=== PATIENT | male | born 1980 | race Caucasian/White ===

== ENCOUNTER 2021-10-30 11:02 | Emergency (ER) | payer OTHER, SELFPAY ==
[2021-10-30 13:05] VITALS: BP 135/92; PULSE 80; RESP 16; TEMP 36.6; O2SAT 99
--- NOTE | 2021-10-30 14:01 | ED.URI ---
HPI - URI/Sore Throat General Chief Complaint: Upper Respiratory Infection Stated Complaint: Bilateral Ear Pain,Cough Time Seen by Provider: 10/30/21 13:52 Source: patient and RN notes reviewed Mode of arrival: ambulatory Limitations: no limitations History of Present Illness HPI Narrative: Patient presents today complaining of 3-day history of congestion, body aches, sore throat, cough, bilateral ear pressure. Denies fever or shortness of breath. He has been taking Mucinex and NyQuil with mild relief. Reports and daughter are sick with similar and daughter was diagnosed with a sinus infection at her doctor's office. MD elicited complaint: cough and nasal congestion Related Data Home Medications Medication Instructions Recorded Confirmed No Home Medications 10/30/21 10/30/21 Allergies Allergy/AdvReac Type Severity Reaction Status Date / Time No Known Allergies Allergy Verified 10/30/21 13:34 Review of Systems Review of Systems: CONSTITUTIONAL: Denies fever, chills, or sweats.+ Body aches EYES: Denies visual changes, redness, or discharge. ENT: Denies rhinorrhea.+ Sore throat, congestion, bilateral ear pressure CARDIOVASCULAR: Denies chest pain, palpitations, or edema. RESPIRATORY: Denies dyspnea.+ Cough GASTROINTESTINAL: Denies abdominal pain, nausea, vomiting, or diarrhea. GENITOURINARY: Denies dysuria or hematuria. SKIN: Denies rash, itching, or wounds. MUSCULOSKELETAL: Denies back pain, joint pain, or myalgia. NEUROLOGIC: Denies headache, numbness, tingling, or weakness. PSYCH: Denies depression or anxiety. PMFSH Comments At time of signature, I have reviewed and agree with nursing past medical, surgical, social and family history unless otherwise noted. Please see nursing chart for further information. There is no relevant family history pertinent to the presenting complaint Exam Narrative: GENERAL: Ill-appearing, well-nourished, and in no acute distress. HEAD: Normocephalic, atraumatic. EYES: EOMI. No redness or drainage. Conjunctivae normal. ENT: Mucous membranes pink and moist. Nares congested. Bilateral nasal turbinates are erythematous and edematous with rhinorrhea. TMs normal bilaterally. Throat normal. Uvula midline. NECK: Normal AROM. Supple. No lymphadenopathy. CHEST: No respiratory distress. Clear to auscultation. HEART: Regular rate and rhythm. No murmur appreciated. Normal peripheral pulses. ABDOMEN: Soft, nontender, nondistended, normal active bowel sounds. MUSCULOSKELETAL: No bony tenderness. EXTREMITIES: Normal range of motion. No edema. SKIN: Warm, dry, no rash. Capillary refill normal. Normal skin turgor. NEURO: No focal deficits. Alert and oriented x3. Gait steady. PSYCH: Normal affect. No signs of depression or anxiety. Course Course Level of Care: Express Care Visit Vital Signs Vital signs: Vital Signs Temperature 97.9 F 10/30/21 13:05 Pulse Rate 80 10/30/21 13:05 Respiratory Rate 16 10/30/21 13:05 Blood Pressure 135/92 H 10/30/21 13:05 Pulse Oximetry 99 10/30/21 13:05 Temperature 97.9 F 10/30/21 13:05 Pulse Rate 80 10/30/21 13:05 Respiratory Rate 16 10/30/21 13:05 Blood Pressure 135/92 H 10/30/21 13:05 Pulse Oximetry 99 10/30/21 13:05 Reviewed. Pt has been instructed to follow up with his PCP regarding his elevated blood pressure today. MDM - URI/Sore Throat Differential Diagnosis Differential diagnosis: Likely upper respiratory infection, sinusitis, viral infection and other (COVID-19) Lab Data Attestation: I reviewed the patient's lab results. Lab results narrative: Rapid COVID-19 test negative Critical Care Time Critical Care Time Critical Care Time: No Discharge Plan Discharge Clinical Impression: Viral sinusitis Patient Disposition: Home, Self-Care Condition: Stable Instructions: Sinusitis (ED) Additional Instructions: Your COVID-19 test is negative today. You have been diagnosed with viral sinus
== END 2021-10-30 14:08 | disposition home or self-care (01) ==
PROVIDERS: Emergency Provider Nurse Practitioner
DX: J32.9 Chronic sinusitis, unspecified (principal); Z20.822 Contact with and (suspected) exposure to COVID-19
CPT/HCPCS: 87426; 99213; C9803; G0463

== ENCOUNTER 2024-07-06 12:05 | Emergency (ER) | payer SELFPAY ==
[2024-07-06 12:12] VITALS: BP 151/115; PULSE 80; RESP 20; TEMP 36.6; O2SAT 99
--- NOTE | 2024-07-06 13:56 | ED.GENADULT ---
HPI - General Adult General Chief complaint: Back Pain/Injury Stated complaint: back pain Time Seen by Provider: 07/06/24 13:44 History of Present Illness HPI narrative: The patient fever year old gentleman presents emergency department with chief complaint of back pain. Patient reports that he has history of back pain reports that he slept on a a couch at hospital while his daughter was in the hospital. The patient reports that he has history of back pain denies bowel or bladder dysfunction denies footdrop denies paresthesias denies urinary retention. The patient reports he has had imaging before reports no trauma reports no history of neoplasm Related Data Allergies Allergy/AdvReac Type Severity Reaction Status Date / Time No Known Allergies Allergy Verified 10/30/21 13:34 Review of Systems Review of Systems: A 10 system review of systems was completed on the patient and is negative except for what is stated in the HPI. Nursing and ancillary documentation was reviewed. Exam Narrative: GENERAL: Well-appearing, well-nourished, and in no acute distress. HEAD: Normocephalic, atraumatic. EYES: PERRLA and EOMI. ENT: Nares clear, no rhinorrhea or epistaxis. Mucous membranes moist. NECK: Supple. CHEST: Clear to auscultation. No respiratory distress. HEART: Regular rate and rhythm. No murmur heard. Normal peripheral pulses. ABDOMEN: Soft, nontender, nondistended, normal active bowel sounds. EXTREMITIES: Normal range of motion. No edema. SKIN: Warm, dry, no rash. NEURO: No focal deficits. Alert and oriented x3. No saddle anesthesia no footdrop PSYCH: Normal mood and affect. Course Vital Signs Vital signs: Vital Signs Temperature 36.6 C 07/06/24 12:12 Pulse Rate 80 07/06/24 12:12 Respiratory Rate 20 07/06/24 12:12 Blood Pressure 151/115 H 07/06/24 12:12 Pulse Oximetry 99 07/06/24 12:12 Oxygen Delivery Room Air 07/06/24 12:12 Temperature 36.6 C 07/06/24 12:12 Pulse Rate 80 07/06/24 12:12 Respiratory Rate 20 07/06/24 12:12 Blood Pressure 151/115 H 07/06/24 12:12 Pulse Oximetry 99 07/06/24 12:12 Oxygen Delivery Room Air 07/06/24 12:12 Medical Decision Making Vital Signs Vital Signs: Vital Signs Temperature 36.6 C 07/06/24 12:12 Pulse Rate 80 07/06/24 12:12 Respiratory Rate 20 07/06/24 12:12 Blood Pressure 151/115 H 07/06/24 12:12 Pulse Oximetry 99 07/06/24 12:12 Oxygen Delivery Room Air 07/06/24 12:12 Temperature 36.6 C 07/06/24 12:12 Pulse Rate 80 07/06/24 12:12 Respiratory Rate 20 07/06/24 12:12 Blood Pressure 151/115 H 07/06/24 12:12 Pulse Oximetry 99 07/06/24 12:12 Oxygen Delivery Room Air 07/06/24 12:12 Discharge Plan Discharge Clinical Impression: Acute low back pain Patient Disposition: Home, Self-Care Condition: Stable Instructions: Antibiotic Form, Acute Low Back Pain (ED) Prescriptions: New prednisone 20 mg tablet 40 mg PO DAILY 5 Days Qty: 10 0RF cyclobenzaprine 10 mg tablet 10 mg PO TID PRN (Reason: muscle spasm) Qty: 21 0RF diclofenac potassium 50 mg tablet 50 mg PO TID PRN (Reason: pain) Qty: 21 0RF Follow-up/Referrals: [place], [Primary Care Provider] - Time of Disposition: 14:37
[2024-07-06] MEDS: ORPHENADRINE CITRATE 100 MG TABLET.ER PO (14:04)
[2024-07-06] MEDS: HYDROcodone/acetaminophen (*CRX) 5-325 MG TABLET 1 TAB PO (14:04)
[2024-07-06] MEDS: dexAMETHasone SOD PHOS INJ 10 MG/ML 1 ML VIAL IM (14:05)
[2024-07-06] MEDS: KETOROLAC 30 MG/ML VIAL (*BKC) IM (14:05)
[2024-07-06 14:44] VITALS: BP 134/82; PULSE 70; RESP 16; O2SAT 97
[2024-07-06] MEDS: HYDROmorphone HCL INJ (*CRX) 1 MG/ML SYR IM (14:59)
== END 2024-07-06 15:18 | disposition home or self-care (01) ==
PROVIDERS: Emergency Provider Emergency Medicine
DX: M54.50 Low back pain, unspecified (principal)
CPT/HCPCS: 96372; 99284; A9270; J1100; J1170; J1885

== ENCOUNTER 2024-07-21 11:51 | Emergency (ER) | payer OTHER, SELFPAY ==
[2024-07-21 11:55] VITALS: BP 157/118; PULSE 118; RESP 20; TEMP 36.1; O2SAT 98
--- NOTE | 2024-07-21 14:15 | ED.GENADULT ---
HPI - General Adult General Chief complaint: Back Pain/Injury Stated complaint: back pain Time Seen by Provider: 07/21/24 12:06 History of Present Illness HPI narrative: This is a 44-year-old male history of back pain presenting with back pain. Patient says that he had stopped working out for some time and then resumed. After that developed a bandlike pain across his lower back. It radiates down his left leg. It is worse with movement. Is most comfortable when he lays flat. He has not have any history of fevers, trauma, IV drug abuse or cancer. No weakness to his legs. No urinary retention or bowel incontinence. No saddle anesthesia he has been seen in our emergency department, by his primary care physician, by [facility] and has appointment in 2 days. He has been taking [place] diclofenac Tylenol Flexeril lidocaine patches and steroids with no relief. Patient has had MRIs and x-rays in the past that did not have any findings. This is been an ongoing issue since 2012. Related Data Allergies Allergy/AdvReac Type Severity Reaction Status Date / Time No Known Allergies Allergy Verified 07/21/24 12:03 [facility] Past Medical History Medical History Chronic back pain Exam Narrative: APPEARANCE: No apparent distress. Head: atraumatic. EYES: EOMI, NOSE: Atraumatic NECK/Back: Patient initially jumps when I touch his lower back. However on repeat palpation there is no definable tenderness. No midline spinal tenderness. No tenderness over the paralumbar muscles. Patient winces whenever he moves. Unable to raise his legs slightly off the bed without him crying out pain. Patient is able to stand up and walk on his own. RESPIRATORY: No increased rate of breathing CARDIOVASCULAR: RRR, ABDOMINAL: Non-distended MUSCULOSKELETAl: No obvious deformities NEURO: Alert. Sensation and motor function intact in the lower extremities. No saddle anesthesia. SKIN:: Warm, dry. Normal color PSYCHIATRIC: Normal affect Course Vital Signs Vital signs: Vital Signs Temperature 97 F L 07/21/24 11:55 Pulse Rate 118 H 07/21/24 11:55 Respiratory Rate 20 07/21/24 11:55 Blood Pressure 157/118 H 07/21/24 11:55 Pulse Oximetry 98 07/21/24 11:55 Oxygen Delivery Room Air 07/21/24 11:55 Temperature 97 F L 07/21/24 11:55 Pulse Rate 118 H 07/21/24 11:55 Respiratory Rate 20 07/21/24 11:55 Blood Pressure 157/118 H 07/21/24 11:55 Pulse Oximetry 98 07/21/24 11:55 Oxygen Delivery Room Air 07/21/24 11:55 Medical Decision Making MDM Narrative Medical decision making narrative: -Course: 44-year-old male presenting with acute on chronic lower back pain. Started after he resumed exercising. No red flags on history or physical. Patient has already seen multiple specialists is on essentially maximal medical therapy. He has not tried physical therapy yet. Patient will be given Valium and his muscle relaxer changes see if that provides any relief as his presentation is consistent with muscle spasms. Patient discharged follow-up with primary care physician next 2-3 days. -DDX includes but is not limited to:lumbago, muscle spasm, spinal cord compression -Co-morbidities complicating care: Chronic back pain -Interventions: Valium, Toradol, Tylenol, lidocaine -Shared decision making / Disposition: Discharge -RX Motrin Tylenol Robaxin lidocaine Vital Signs Vital Signs: Vital Signs Temperature 97 F L 07/21/24 11:55 Pulse Rate 118 H 07/21/24 11:55 Respiratory Rate 07/21/24 11:55 Blood Pressure 157/118 H 07/21/24 11:55 Pulse Oximetry 98 07/21/24 11:55 Oxygen Delivery Room Air 07/21/24 11:55 Temperature 97 F L 07/21/24 11:55 Pulse Rate 118 H 07/21/24 11:55 Respiratory Rate 07/21/24 11:55 Blood Pressure 157/118 H 07/21/24 11:55 Pulse Oximetry 98 07/21/24 11:55 Oxygen Delivery Room Air 07/21/24 11:55 Dis
--- NOTE | 2024-07-21 14:36 | PC.NURSE ---
Pt states that he is leaving to pick his kids up from the bus stop. 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
[2024-07-21] MEDS: ACETAMINOPHEN 500 MG TABLET 1000 MG PO (14:43)
[2024-07-21] MEDS: KETOROLAC 30 MG/ML VIAL (*BKC) IM (14:44)
[2024-07-21 14:53] VITALS: BP 155/80; PULSE 82; RESP 16; O2SAT 98
== END 2024-07-21 14:54 | disposition home or self-care (01) ==
PROVIDERS: Emergency Provider Emergency Medicine
DX: S39.012A Strain of muscle, fascia and tendon of lower back, initial encounter (principal); X58.XXXA Exposure to other specified factors, initial encounter
CPT/HCPCS: 96372; 99283; A9270; J1885

== ENCOUNTER 2025-08-07 02:47 | Day surgery (SDC) | payer OTHER, SELFPAY ==
[2025-07-28 12:35] VITALS: BMI 35.8
[2025-08-07 11:14] VITALS: BP 133/89; PULSE 75; RESP 19; TEMP 36.6; O2SAT 99
[2025-08-07] MEDS: LACTATED RINGERS 1,000 ML 150 ML IV CONT (11:28)
--- NOTE | 2025-08-07 11:44 | PM.HPGS ---
History of Present Illness History of Present Illness Consent: Risks, benefits, and alternatives have been discussed and questions answered. Patient agrees to proceed with procedure. Chief complaint: screening for malignant neoplasm of colon Narrative: Vishal Chandra Jr. is a 45 year old male here for first screening colonoscopy Review of Systems Review of Systems: All systems reviewed & are unremarkable except as noted in HPI and below PMFSH Past Medical History Medical History (Updated 08/07/25 @ 11:44 by Romaine Wade MD) Colon cancer screening Chronic back pain Social History Social History Smoking status: Never smoker Alcohol intake: current Substance use: never Substance use type: does not use Living arrangements: with family Spiritual care concerns: No Meds Home Medications and Allergies Home Medications ?Medication ?Instructions ?Recorded ?Confirmed ?Type cyclobenzaprine 10 mg tablet 10 mg PO TID PRN muscle spasm #21 07/06/24 07/28/25 Rx tabs acetaminophen 500 mg tablet 1,000 mg (2 x 500 mg) PO TID PRN 07/21/24 07/28/25 Rx benji 7 days #42 tabs ibuprofen 800 mg tablet 800 mg PO TID PRN pain 7 days #21 07/21/24 07/28/25 Rx tabs lidocaine 5 % topical patch 1 patch topical DAILY #15 ea 07/21/24 07/28/25 Rx gabapentin 300 mg capsule 300 mg PO Q12H PRN pain 07/28/25 07/28/25 History hydrocodone 10 mg-acetaminophen 1 tablet PO Q12H PRN pain 07/28/25 07/28/25 History 325 mg tablet Allergies Allergy/AdvReac Type Severity Reaction Status Date / Time No Known Allergies Allergy Verified 08/07/25 11:13 Vital Signs Vital Signs - 24 hr 08/07/25 11:14 Temperature 98 F Pulse Rate 75 Respiratory Rate 19 Blood Pressure 133/89 Pulse Oximetry 99 Oxygen Delivery Room Air Exam Const: General: comfortable and no acute distress HENMT: Face/Nose/Sinus: Normal nares present Eyes: General: appearance normal, both eyes and all related structures Neck: Neck: no JVD Resp: Auscultation: clear to auscultation bilaterally Cardio: Rate: regular rate Rhythm: regular rhythm GI: Inspection: non-distended GI Palp: Yes Soft to palpation Skin: General skin exam: normal color Extrem: General: normal to inspection Psych: Mental Status: mental status grossly normal Assessment and Plan Assessment and plan (1) Colon cancer screening: Code(s): Z12.11 - Encounter for screening for malignant neoplasm of colon Status: Acute Assessment and Plan: colonoscopy
--- NOTE | 2025-08-07 11:52 | P.PNAN_ITS ---
Anes - Initial Pre Proc Eval Procedure: Operation Date: 08/07/25 14:30 Proposed Procedures p Screening Colonoscopy - Romaine Wade MD Date/Time: 08/07/25 11:52 Surgeon: Romaine Wade MD Pre Op Diagnosis: screening for malignant neoplasm of colon Patient Data Age: 45 Gender: M Height: 1.73 m Weight: 107 kg Last Vital Signs Temp 36.6 C 08/07/25 11:14 Pulse 75 08/07/25 11:14 Resp 19 08/07/25 11:14 BP 133/89 08/07/25 11:14 Pulse Ox 99 08/07/25 11:14 O2 Del Method Room Air 08/07/25 11:14 Allergies Allergy/AdvReac Type Severity Reaction Status Date / Time No Known Allergies Allergy Verified 08/07/25 11:13 Home Medications ?Medication ?Instructions ?Recorded ?Confirmed ?Type cyclobenzaprine 10 mg tablet 10 mg PO TID PRN muscle s pasm #21 07/06/24 07/28/25 Rx tabs acetaminophen 500 mg tablet 1,000 mg (2 x 500 mg) PO T ID PRN 07/21/24 07/28/25 Rx benji 7 days #42 tabs ibuprofen 800 mg tablet 800 mg PO TID PRN pain 7 day s #21 07/21/24 07/28/25 Rx tabs lidocaine 5 % topical patch 1 patch topical DAILY #15 ea 07/21/24 07/28/25 Rx gabapentin 300 mg capsule 300 mg PO Q12H PRN pain 07/0107/28/25 History hydrocodone 10 mg-acetaminophen 1 tablet PO Q12H PRN p ain 07/28/25 07/28/25 History 325 mg tablet Patient hx anesthesia problems: none Family hx anesthesia problems: none Results Review: All pre-operative results and documents have been reviewed as part of the pre- operative evaluation. [facility] Past Medical History Medical History Colon cancer screening Chronic back pain Social History Social History Smoking status: Never smoker Alcohol intake: current Substance use: never Substance use type: does not use Living arrangements: with family Spiritual care concerns: No Anes - Eval Final PreProcedure Day of Procedure 08/07/25 11:52 Patient weight: obese Heart: regular rate and rhythm Lungs: clear to auscultation Airway: Mallampati scale class II Neurological: alert and oriented Last oral intake: >/= 8 hours ASA classification: III Emergent: no Anesthetic plan: proceed Anesthesia type and monitoring: general GIVS and standard monitoring Results Review: All pre-operative results and documents have been reviewed as part of the pre- operative evaluation. Informed Consent: The patient's anesthetic plan and its attendant risks and benefits were discussed with the patient/family/POA. Questions were solicited and answers provided to the satisfaction of the patient/family/POA.
[2025-08-07 12:11] VITALS: BP 110/73; PULSE 82; RESP 19; O2SAT 98
[2025-08-07 12:21] VITALS: BP 111/79; PULSE 76; RESP 20; O2SAT 97
[2025-08-07 12:31] VITALS: BP 127/85; PULSE 70; RESP 17; O2SAT 99
== END 2025-08-07 12:42 | disposition home or self-care (01) ==
PROVIDERS: PCP Emergency Medicine; Visit Provider Internal Medicine Gastroenterology
PROC: 0DJD8ZZ Inspection of Lower Intestinal Tract, Via Natural or Artificial Opening Endoscopic (ICD-10-PCS; CPT 45378; principal; 2025-08-07 14:30)
DX: Z12.11 Encounter for screening for malignant neoplasm of colon (principal); K64.8 Other hemorrhoids; G89.29 Other chronic pain; M54.9 Dorsalgia, unspecified; E66.9 Obesity, unspecified; Z68.35 Body mass index [BMI] 35.0-35.9, adult; Z79.1 Long term (current) use of non-steroidal anti-inflammatories (NSAID); Z79.891 Long term (current) use of opiate analgesic
CPT/HCPCS: 45378; J2704; J7120